=== PATIENT | male | born 1970 | race Hispanic/Latino ===

== ENCOUNTER 2024-07-17 09:00 | Outpatient (CLI) | payer BC | END 2024-07-17 09:01 | disposition home or self-care (01) | LOC: CSHSLEEP 09:00 | PROVIDERS: ATTEND Family Medicine | DX: G47.33 Obstructive sleep apnea (adult) (pediatric) (principal); R53.83 Other fatigue; R06.83 Snoring; G47.31 Primary central sleep apnea | CPT/HCPCS: 95800 ==

== ENCOUNTER 2024-07-30 08:06 | Outpatient (CLI) | payer BC | END 2024-07-30 08:07 | disposition home or self-care (01) | LOC: CSHSLEEP 08:06 | PROVIDERS: ATTEND Family Medicine | DX: G47.33 Obstructive sleep apnea (adult) (pediatric) (principal); R53.83 Other fatigue; R06.83 Snoring | CPT/HCPCS: 95811 ==